=== PATIENT | male | born 2000 | race Two or more races ===

== ENCOUNTER 2018-11-23 00:07 | Emergency (ER) | payer MEDICAID ==
[~2018-11-23] VITALS: Ht 185.4 cm; Wt 127.0 kg
--- NOTE | 2018-11-23 00:20 | NUR ---
[facility] 84 [facility] [place], PT STATES "HE IS FEELING DEPRESSED, +SI, +HI, + ETOH/ +XANAX, + CANNIBUS X HR ENERGY PROJECT ENGINEER, VS STABLE, PLACED ON ER BED 12, SEEN AND EVAL DONE BY DR POWERS, CRISIS TEAM CONSULT ENTERED AND LAB ORDERS.
[2018-11-23 00:45] LABS: BASOPHILS % (AUTO) 0.4 % (0.0-2.0); EOSINOPHILS % (AUTO) 1.2 % (0.0-6.0); HEMATOCRIT 39 % (39-51); LYMPHOCYTES % (AUTO) 21.3 % (20.0-44.0); MEAN CORPUSCULAR HGB CONC 34 g/dl (31.0-36.0); MEAN CORPUSCULAR VOLUME 85 fL (80-96); MONOCYTES # (AUTO) 0.8 /CMM (0.1-1.30); NEUTROPHILS # (AUTO) 6.5 /CMM (1.8-8.9); NEUTROPHILS % (AUTO) 69.1 % (43.0-81.0); PLATELET COUNT (AUTO) 257 /CMM (150-450); RED BLOOD CELL COUNT(AUTO) 4.55 MIL/uL (4.5-6.0); WHITE BLOOD COUNT (AUTO) 9.4 K/uL (4.3-11.0)
[2018-11-23 00:48] LABS: APPEARANCE,URINE CLEAR (CLEAR); BILIRUBIN,URINE NEGATIVE (NEGATIVE); BLOOD, URINE NEGATIVE Ery/uL (NEGATIVE); COLOR,URINE YELLOW (YELLOW); KETONES,URINE NEGATIVE (NEGATIVE); LEUKOCYTE ESTERASE ,URINE NEGATIVE (NEGATIVE); NITRITE, URINE NEGATIVE (NEGATIVE); PROTEIN,URINE NEGATIVE (NEGATIVE); UGLUCOSE NEGATIVE (NEGATIVE); UROBILINOGEN,URINE 0.2 EU/dL (0.2)
[2018-11-23 00:58] LABS: ALANINE AMINOTRANSFERASE 50 U/L (12-78); ALBUMIN 3.5 g/dL (3.4-5.0); ALCOHOL, BLOOD < 3 mg/dL (0-0); ALKALINE PHOSPHATASE 103 U/L (46-116); ASPARTATE AMINOTRANSFERASE 19 U/L (15-37); BILIRUBIN,DIRECT 0.1 mg/dL (0.0-0.2); BILIRUBIN,TOTAL 0.2 mg/dL (0.2-1.0); CALCIUM, SERUM 9.1 mg/dL (8.5-10.1); CARBON DIOXIDE 28 mmol/L (21-32); CHLORIDE 102 mmol/L (98-107); GLUCOSE 96 mg/dL (74-106); POTASSIUM 4.2 mmol/L (3.5-5.1); SODIUM SERUM 138 mmol/L (136-145); UREA NITROGEN, BLOOD 14 mg/dL (7-18)
[2018-11-23 01:00] LABS: ACETAMINOPHEN 0 ug/ml (10-30); SALICYLATE 1.8 mg/dL (2.8-20.0)
--- NOTE | 2018-11-23 02:43 | NUR ---
PT AWAKE IN BED CALM STILL INSISTS HE IS SUICIDAL WITHOUT A PLAN, WILL CONT' TO MONITOR, GIVEN FOOD AT BED SIDE.
--- NOTE | 2018-11-23 03:09 | NUR ---
[facility] TEAM HERE TO EVAL PT AT BEDSIDE, REPORT GIVEN.
--- NOTE | 2018-11-23 03:48 | NUR ---
SEE N BY [facility] CRISIS TEAM RN, JOHN BUTLER, AWAITING FOR [facility] TO CALL FOR ARRANGEMENTS FOR TRANSPORT AND PLACEMENT.
--- NOTE | 2018-11-23 04:44 | NUR ---
PT WILL BE TRANSFERRED TO [facility], ENTRANCE #4. ACCEPTING PHYSICIAN: DR. RODRIGUEZ NUMBER FOR REPORT: [phone] ETA: [id number]
--- NOTE | 2018-11-23 05:38 | NUR ---
PT AWAKE, APPEARS COMFORTABLE, AWAITING [employer]INE[employer].
[2018-11-23 05:39] VITALS: BP 132/80
--- NOTE | 2018-11-23 06:08 | NUR ---
GAVE REPORT TO OMAYRA GARG AMO RADHA FOR [facility]Y
--- NOTE | 2018-11-23 06:09 | NUR ---
PT PICKED UP BY [facility] AND TRANSFERED TO [facility].
== END 2018-11-23 06:30 ==
LOC: ER 00:09
DX: F20.9 Schizophrenia, unspecified (principal); F31.9 Bipolar disorder, unspecified; R45.851 Suicidal ideations; F10.10 Alcohol abuse, uncomplicated; F12.10 Cannabis abuse, uncomplicated; F17.200 Nicotine dependence, unspecified, uncomplicated; Y90.0 Blood alcohol level of less than 20 mg/100 ml; Z91.14 Patient's other noncompliance with medication regimen
CPT/HCPCS: 36415; 80048; 80076; 80305; 80307; 80329; 81001; 85025; 99285; 99406; G0480; 81000-TC